=== PATIENT | male | born 1955 | race Caucasian/White ===

== ENCOUNTER 2021-03-30 09:52 | Emergency (ER) | payer OTHER, SELFPAY ==
--- NOTE | ~2021-03-30 | CT_ITS ---
EXAMINATION: CT PELVIS WITH CONTRAST CLINICAL INFORMATION: Rectal pain. Rule out perirectal abscess. COMPARISON: None TECHNIQUE: Helical scanning was performed with submillimeter collimation through the pelvis with the use of oral contrast and during bolus intravenous injection of 85 mL of Omnipaque 350 intravenous contrast. Sagittal and coronal multiplanar 2-D reconstructions were obtained. This CT examination was performed using dose optimization techniques as appropriate, variously including the following: *Automated exposure control *Adjustment of mA and/or kV according to patient size (this includes techniques or standardized protocols for targeted exams where dose is matched to indication/reason for exam; i.e. extremities or head) *Use of iterative reconstruction technique DLP: 348 mGy-cm FINDINGS: There is low-attenuation seen in the perineal region slightly to the right of midline and anterior to the lower rectum and anus suggestive of tiny perianal abscess or possibly a pilonidal cyst. This measures 0.5 x 1.5 x 1.8 cm in transverse AP and longitudinal dimension. There is a high density focus more superiorly that measures 4 mm. It is uncertain whether this represents oral contrast, postsurgical change or calcification axial image 49 series 2. The visualized small and large bowel is unremarkable. The appendix is unremarkable. There is evidence of atherosclerotic disease. The bladder is normal. The prostate gland is slightly enlarged measuring 4.5 x 5.5 cm in AP and transverse dimension. There is a right inguinal hernia containing fat. There is an umbilical hernia containing fat. There are no enlarged lymph nodes. There is no ascites. There is degenerative changes of the spine and bilateral hip joints. There are small nonspecific sclerotic densities in the bones, largest measuring 8 mm in the left acetabulum. CT/CT pelvis w con IMPRESSION: Probable small anterior perianal abscess or pilonidal cyst slightly to the right of midline.
[2021-03-30 09:55] VITALS: PULSE 63; RESP 18; TEMP 36.9; O2SAT 97; BMI 32.7
--- NOTE | 2021-03-30 11:12 | ED.GENADULT ---
HPI - General Adult General Chief complaint: General Medical Stated complaint: CYST Time Seen by Provider: 03/30/21 11:12 History of Present Illness HPI narrative: Patient complains of rectal pain for several days, as well as having some yellowish bloody discharge from the area, it is not blood in the stool it is not associated with stool, stool color is normal no nausea no vomiting no black or purple stool, no fever no chills Related Data Home Medications Medication Instructions Recorded Confirmed metoprolol tartrate 50 mg tablet 50 mg PO DAILY 04/03/21 04/03/21 rosuvastatin 40 mg tablet 40 mg PO DAILY 04/03/21 04/03/21 Previous Rx's Medication Instructions Recorded amoxicillin 875 mg-potassium 1 tab PO BID #20 tab 04/03/21 clavulanate 125 mg tablet doxycycline hyclate 100 mg capsule 100 mg PO BID 7 Days #14 cap 04/03/21 Allergies Allergy/AdvReac Type Severity Reaction Status Date / Time No Known Allergies Allergy Unverified 07/24/20 15:21 [No Known Allergies*] Review of Systems Review of Systems: Positive for rectal pain and some discharge Negative no fever no chills no dizziness no weakness no fainting no feeling faint no headache no neck pain no chest pain no abdominal pain no nausea or vomiting no diarrhea no urinary symptoms no skin rash no incontinence Yes all other systems are reviewed and are negative PMFSH Past Medical History Source: nursing notes reviewed Medical History High cholesterol HTN (hypertension) Surgical History History of fracture of left hip History of right knee surgery Family History Family History Mother Cancer of unknown origin Father Prostate cancer Brother Prostate cancer Social History Social History Alcohol intake: never Patient Tobacco Use Status: Never used Tobacco Physical Exam Vital Signs: Vital Signs: Last Vital Signs Temp 97.6 F 03/30/21 14:35 Pulse 63 03/30/21 09:55 Resp 18 03/30/21 09:55 BP 137/81 03/30/21 14:35 Pulse Ox 96 03/30/21 14:35 Body Mass Index 32.7 General appearance no acute distress, cooperative Pupils are anicteric, no pallor Mucous membranes are moist No respiratory distress Abdomen soft nontender Rectal exam there is an area of redness and induration on right lateral side of rectum, internal rectal exam did not reveal any area of fluctuance, but there was some pus see bloody discharge on the finger Extremities full range of motion x4 Neuro no focal deficit Course Course Course Narrative: Because of discharge from rectum and area of redness and induration I was concerned about perirectal abscess so got a scan CT scan showed a small perirectal abscess Discussed with Dr. Sauer surgeon who happened to be in the ER and he came over and saw the patient and said the abscess is actively draining that no emergent procedures required Patient will be on antibiotics and will follow this week with Dr. Sauer Medical Decision Making Lab Data Lab results reviewed: Yes I reviewed the patient's lab results. Result diagrams: 03/30/21 11:37 03/30/21 13:56 Labs: Lab Results 03/30/21 03/30/21 03/30/21 Range/Units 11:37 11:37 13:56 WBC 10.0 (4.8-10.8) X10*3/uL RBC 5.59 (4.60-5.80) X10*6/uL Hgb 16.7 (14.0-18.0) g/dl Hct 49.6 (42-52) % MCV 88.7 (80-98) fL MCH 29.9 (27.0-33.0) pg MCHC 33.7 (31.0-36.0) g/dl RDW 13.8 (11.0-16.0) % Plt Count 200 (160-400) X10*3/uL MPV 10.5 (9.4-12.4) fL Immature Gran % (Auto) 0.1 (0.0-0.4) % Neut % (Auto) 53.8 (45-73) % Lymph % (Auto) 33.3 (20-40) % [place] % (Auto) 10.2 (2-11) % Eos % (Auto) 2.1 (0-4) % Baso % (Auto) 0.5 (0-2) % Lymph # (Auto) 3.3 (1.2-4.9) X10*3/uL [place] # (Auto) 1.0 (0.1-1.2) X10*3/uL Eos # (Auto) 0.2 (0.0-0.4) X10*3/uL Baso # (Auto) 0.1 (0.0-0.2) X10*3/uL Abs Immat Gran (auto) 0.01 (0.00-0.03) X10*3/uL Absolute Neuts (auto) 5.4 (2.0-8.3) X10*3/uL Absolute Nucleated RBC 0.000 (0.0-0.012) X10*3/uL Nucleated RBC % (auto) 0.0 (0.0-0.2) /100WBC Sodium 141 (135-145) mmol/L Potassium 5.5 H 5.1 (3.3-5.1) mmol/L Chloride 108 (96-108) mmol/L Carbon Dioxide 24 (22-29) mmol/L Anion Gap 15 (12-20) BUN 12 (9-16) mg/dL Creatinine 0.97 (0.5-1.4) mg/dL Estim Creat Clear Calc 102.6 Estimated GFR > 60 Random Glucose 87 (60-115) mg/dL Calcium 9.0 (8.4-10.2) mg/dL Discharge Plan Discharge Clinical Impression: Abscess, perirectal Patient Disposition: Home, Self-Care Additional Instructions: CT scan showed a small perirectal abscess You were seen by surgical Dr. Sauer in the Emergency Room oblique of the abscess is draining and recommends do warm soaks at home He will follow in his office this week you will call the office to make an appointment Return to the ER any time for worse pain worse swelling fever any worse condition or any concerns I added the antibiotic doxycycline for broader coverage Probiotics available [id number] in the pharmacy help to prevent antibiotic associated diarrhea Prescriptions: No Action rosuvastatin 40 mg tablet 40 mg PO DAILY RF: 0 metoprolol tartrate 50 mg tablet 50 mg PO DAILY RF: 0 amoxicillin-pot clavulanate 875-125 mg tablet 1 tab PO BID Qty: 20 RF: 0 doxycycline hyclate 100 mg capsule 100 mg PO BID 7 Days Qty: 14 RF: 0 Referrals: Douglas Sauer MD [Physician] - 2 days (Follow-up for yanira rectal abscess) Interventions: ED Discharge Assessment Last Done: 03/30/21 16:21 Discharge Date/Time: 03/30/21 16:22
[2021-03-30 11:42] LABS: MANUAL DIFF FLAG NO
[2021-03-30 11:46] LABS: Basophils Absolute Auto 0.1 X10*3/uL (0.0-0.2); Basophils Percent Auto 0.5 % (0-2); Eosinophils Absolute Auto 0.2 X10*3/uL (0.0-0.4); Eosinophils Percent Auto 2.1 % (0-4); Hematocrit 49.6 % (42-52); Hemoglobin 16.7 g/dl (14.0-18.0); Imm Gran Abs Auto 0.01 X10*3/uL (0.00-0.03); Imm Gran Pct Auto 0.1 % (0.0-0.4); Lymphocytes Absolute Auto 3.3 X10*3/uL (1.2-4.9); Lymphocytes Percent Auto 33.3 % (20-40); Mean Corpuscular HGB Conc 33.7 g/dl (31.0-36.0); Mean Corpuscular Hemoglobin 29.9 pg (27.0-33.0); Mean Corpuscular Volume 88.7 fL (80-98); Mean Platelet Volume 10.5 fL (9.4-12.4); Monocytes Percent Auto 10.2 % (2-11); Neutrophils Absolute Auto 5.4 X10*3/uL (2.0-8.3); Neutrophils Percent Auto 53.8 % (45-73); Platelet Count 200 X10*3/uL (160-400); Red Blood Count 5.59 X10*6/uL (4.60-5.80); Red Cell Distribution Width 13.8 % (11.0-16.0)
[2021-03-30 13:04] LABS: Anion Gap 15 (12-20); Blood Urea Nitrogen 12 mg/dL (9-16); Carbon Dioxide 24 mmol/L (22-29); Chloride 108 mmol/L (96-108); Creatinine Clr Calc Pharmacy 102.6; Estimated Glomerular Filt Rate > 60; Glucose Random 87 mg/dL (60-115); Potassium 5.5 mmol/L (3.3-5.1); Sodium 141 mmol/L (135-145)
[2021-03-30] MEDS: iohexoL 350 MG/ML 100 ML INFUS..BTL IV (13:54)
[2021-03-30 14:28] LABS: Potassium 5.1 mmol/L (3.3-5.1)
[2021-03-30 14:35] VITALS: BP 137/81; TEMP 36.4; O2SAT 96
== END 2021-03-30 16:22 | disposition home or self-care (01) ==
PROVIDERS: Physician Assistant Medical; Emergency Provider Emergency Medicine; PCP Internal Medicine
DX: K61.1 Rectal abscess (principal); I10 Essential (primary) hypertension; E78.5 Hyperlipidemia, unspecified; Z79.02 Long term (current) use of antithrombotics/antiplatelets; Z79.899 Other long term (current) drug therapy
CPT/HCPCS: 36415; 72193; 80048; 84132; 85025; 99284; Q9967

== ENCOUNTER → 2021-04-03 08:36 | Outpatient (BNVA) | payer OTHER, SELFPAY | PROVIDERS: PCP Internal Medicine; Referring Provider Internal Medicine; Visit Provider Surgery ==

== ENCOUNTER → 2021-04-16 08:39 | Outpatient (BNVA) | payer OTHER, SELFPAY | PROVIDERS: PCP Physician Assistant Medical; Visit Provider Surgery ==

== ENCOUNTER 2022-01-10 20:26 | Emergency (ER) | payer OTHER, SELFPAY ==
--- NOTE | ~2022-01-10 | CT_ITS ---
EXAMINATION: CT ANGIOGRAM NECK AND HEAD CLINICAL INFORMATION: Vertical double vision COMPARISON: Noncontrast head CT from earlier today TECHNIQUE: Initial noncontrast head CT was performed. Test bolus sequences followed by intravenous administration 65 mL of Omnipaque 350. Helical imaging was performed in the axial plane from the thoracic inlet to the skull vertex. Delayed postcontrast imaging of the head was also performed. The data was processed at the cardiovascular radiologic technologist's workstation for generation of MIP sequences. Angled MIPs and volume rendered reformatted images were also generated at an offline 3D workstation. Stenoses are assessed in accordance with NASCET criteria unless otherwise indicated. DOSE LOWERING TECHNIQUES: This CT examination was performed using dose optimization techniques as appropriate, variously including the following: - Automated exposure control - Adjustment of mA and/or kV according to patient size (this includes techniques or standardized protocols for targeted exams were dose is matched to indication/reason for exam; i.e. 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 No significant stenosis at the branch origins off the aortic arch. The right vertebral artery arises off the common carotid artery. Both vertebral arteries are widely patent throughout their extracranial cervical course. There is calcification at the left common carotid artery bifurcation which appears to result in less than 50% luminal narrowing. Minimal calcification is present at the right common carotid artery bifurcation and proximal internal carotid artery. Otherwise normal appearance of the common and internal carotid arteries bilaterally. Brain CTA: Normal appearance of the intradural vertebral arteries. Normal appearance of the basilar and superior cerebellar arteries. Normally opacified posterior cerebral arteries bilaterally. Normal appearance of the intradural internal carotid arteries without focal stenosis. Normal appearance of the anterior cerebral and middle cerebral arteries without focal occlusion or stenosis. Normal anterior communicating artery. Normal arborization of the middle cerebral arteries. CT Head: No intracranial mass, hemorrhage, extra-axial collection, or midline shift. The zepeda-white matter differentiation is preserved. No pathologic intra-axial enhancement or regional oligemia. No hydrocephalus. Partially opacified bilateral maxillary sinuses. Mastoid air cells are well aerated. CT Neck: The thyroid gland and remaining cervical soft tissues are normal in appearance. There is facet arthropathy throughout the cervical spine as well as multilevel disc space narrowing and endplate osteophyte formation. Upper Chest: No abnormalities in the visualized lung apices or upper mediastinum. CT/CT angio head neck IMPRESSION: 1. No large vessel occlusion or significant stenosis in the intracranial circulation. 2. Calcification at the left common carotid artery bifurcation, with less than 50% luminal narrowing.
--- NOTE | ~2022-01-10 | CT_ITS ---
EXAMINATION: CT HEAD WITHOUT CONTRAST CLINICAL INFORMATION: Intermittent double vision throughout the day COMPARISON: None TECHNIQUE: Contiguous axial imaging was performed from the skull base to vertex without intravenous administration of contrast. This CT examination was performed using dose optimization techniques as appropriate, variously including the following: *Automated exposure control *Adjustment of mA and/or kV according to patient size (this includes techniques or standardized protocols for targeted exams where dose is matched to indication/reason for exam; i.e. extremities or head) *Use of iterative reconstruction technique DLP: 2436 mGy-cm FINDINGS: There is no evidence of acute intracranial hemorrhage or territorial infarction. No abnormal mass effect or midline shift is seen. Mahmood to white matter differentiation is well preserved. No extra-axial fluid collections are identified. The ventricles are normal in size. There is no abnormal attenuation within the brain parenchyma. The osseous structures and soft tissues are normal. Partially opacified bilateral maxillary sinuses. The mastoid air cells are well-aerated. CT/CT head/brain wo con IMPRESSION: No acute intracranial pathology.
[2022-01-10 20:30] VITALS: BP 154/87; PULSE 63; RESP 18; TEMP 36.5; O2SAT 94; BMI 35.2
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
[2022-01-11 00:40] VITALS: BP 127/81; PULSE 52; RESP 16; TEMP 36.7; O2SAT 95
[2022-01-11 00:59] LABS: Basophils Percent Auto 0.5 % (0-2); Eosinophils Absolute Auto 0.2 X10*3/uL (0.0-0.4); Eosinophils Percent Auto 2.4 % (0-4); Hematocrit 49.5 % (42.0-52.0); Hemoglobin 16.9 g/dl (14.0-18.0); Imm Gran Abs Auto 0.01 X10*3/uL (0.00-0.03); Imm Gran Pct Auto 0.1 % (0.0-0.4); Lymphocytes Absolute Auto 4.3 X10*3/uL (1.2-4.9); Lymphocytes Percent Auto 54.8 % (20-40); MANUAL DIFF FLAG NO; Mean Corpuscular HGB Conc 34.1 g/dl (31.0-36.0); Mean Corpuscular Hemoglobin 30.1 pg (27.0-33.0); Mean Corpuscular Volume 88.1 fL (80.0-98.0); Mean Platelet Volume 10.3 fL (9.4-12.4); Monocytes Absolute Auto 0.8 X10*3/uL (0.1-1.2); Monocytes Percent Auto 10.4 % (2-11); Neutrophils Absolute Auto 2.5 x10*3/uL (2.0-8.3); Neutrophils Percent Auto 31.8 % (45-73); Platelet Count 171 X10*3/uL (160-400); Red Blood Count 5.62 X10*6/uL (4.60-5.80); Red Cell Distribution Width 13.7 % (11.0-16.0); White Blood Count 7.9 X10*3/uL (4.8-10.8)
[2022-01-11 01:05] LABS: INTERNATIONAL NORM RATIO 1.1 (0.9-1.1); Prothrombin Time 12.3 SEC (9.9-13.0)
[2022-01-11 01:17] LABS: Alanine Aminotransferase 32 U/L (0-40); Albumin Level 4.1 g/dL (3.5-5.0); Alkaline Phosphatase 55 U/L (39-117); Anion Gap 11 (12-20); Aspartate Amino Transferase 26 U/L (5-37); Bilirubin Total 0.6 mg/dL (0.0-1.0); Blood Urea Nitrogen 21 mg/dL (9-16); Calcium 9.5 mg/dL (8.4-10.2); Carbon Dioxide 28 mmol/L (22-29); Chloride 106 mmol/L (96-108); Creatinine Clr Calc Pharmacy 94.2; Estimated Glomerular Filt Rate > 60; Glucose Random 97 mg/dL (60-115); Potassium 4.6 mmol/L (3.3-5.1); Sodium 140 mmol/L (135-145); Total Protein 6.7 g/dL (6.5-8.0)
[2022-01-11 01:37] LABS: Thyroid Stimulating Hormone 3.93 uIU/mL (0.32-4.0)
[2022-01-11] MEDS: iohexoL 350 MG/ML 100 ML INFUS..BTL 65 ML IV (02:17)
[2022-01-11 04:00] VITALS: BP 158/81; PULSE 52; RESP 16; TEMP 36.5; O2SAT 95
== END 2022-01-11 04:27 | disposition home or self-care (01) ==
PROVIDERS: Emergency Provider Student in an Organized Health Care Education/Training Program; PCP Physician Assistant Medical
DX: H53.2 Diplopia (principal); I10 Essential (primary) hypertension; E78.5 Hyperlipidemia, unspecified; Z79.02 Long term (current) use of antithrombotics/antiplatelets
CPT/HCPCS: 70450; 70496; 70498; 80053; 84443; 85025; 85610; 99284; Q9967

== ENCOUNTER 2022-01-21 05:07 | Emergency (ER) | payer OTHER, SELFPAY ==
--- NOTE | ~2022-01-21 | CT_ITS ---
EXAMINATION: CT HEAD WITHOUT CONTRAST CLINICAL INFORMATION: Bilateral upper extremity weakness COMPARISON: Portions of a previous head CT 01/11/22 TECHNIQUE: Multidetector CT examination of the head is performed without contrast. This CT examination was performed using dose optimization techniques as appropriate, variously including the following: *Automated exposure control *Adjustment of mA and/or kV according to patient size (this includes techniques or standardized protocols for targeted exams where dose is matched to indication/reason for exam; i.e. extremities or head) *Use of iterative reconstruction technique DLP: 680 mGy-cm FINDINGS: There is no evidence of a recent intracranial hemorrhage or extra-axial collection. The midline structures are nondisplaced. The ventricles, cisterns, and sulci are within normal limits. There is no evidence of an intra-axial mass. There are no suspicious focal areas of abnormal brain attenuation. The zepeda-white interface is within normal limits. There is no evidence of acute territorial infarct. Suspect a partially included retention cyst or polyp in the left maxillary sinus unchanged. CT/CT head/brain wo con IMPRESSION: 1. There is no evidence of a recent intracranial hemorrhage. 2. No acute infarct. 3. No significant interval change
[2022-01-21 05:12] VITALS: BP 182/97; PULSE 64; RESP 16; TEMP 35.8; O2SAT 95; BMI 34.7
--- NOTE | 2022-01-21 06:02 | PC.NURSE ---
Assumed care of pt Per pt, every time he bends over and puts his arms behind his back he looses control of the arm. Per pt, arm just hangs down. Pt denies any pain. Pt went to urgent care and was given muscle relaxants. Per pt, made him feel loopy and does not want to take it again. 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
[2022-01-21 07:05] VITALS: BP 147/80; PULSE 53; RESP 16; O2SAT 95
--- NOTE | 2022-01-21 07:09 | ED_ITS ---
HPI - General Adult General Chief complaint: General Medical Stated complaint: losing control of motor skills (1x week) Time Seen by Provider: 01/21/22 07:09 Source: patient Mode of arrival: ambulatory Limitations: no limitations History of Present Illness HPI narrative: 66-year-old male came in for evaluation of bilateral upper extremities weakness for the past week. Started with pain in the back of both arms, now the pain is going away, patient notice if bent over and try to hold his both arms behind his back has no strength to keep them up and arms drop down, patient also been having trouble wiping after bowel movements, otherwise patient has no weakness and able to move both upper extremities, no lower extremities strength problem. no loss of sensation, patient otherwise declined any trauma to both arms or neck, no fever or chills, no other neurological symptoms, no headache, no double vision, patient was seen 10 days ago for diplopia with a negative workup in the emergency department. Past medical history with no significant neurological issue. Related Data Home Medications Medication Instructions Recorded Confirmed metoprolol tartrate 50 mg tablet 50 mg PO DAILY 04/03/21 04/16/21 rosuvastatin 40 mg tablet 40 mg PO DAILY 04/03/21 04/16/21 Previous Rx's Medication Instructions Recorded amoxicillin 875 mg-potassium 1 tab PO BID #20 tab 04/03/21 clavulanate 125 mg tablet doxycycline hyclate 100 mg capsule 100 mg PO BID 7 Days #14 cap 04/03/21 Allergies Allergy/AdvReac Type Severity Reaction Status Date / Time No Known Allergies Allergy Verified 01/10/22 20:30 [No Known Allergies*] Review of Systems Review of Systems: All other systems are reviewed and are negative Constitutional: Reports as per HPI and Reports no additional constitutional complaints Eyes: Reports as per HPI and Reports no additional eye complaints Reports system reviewed and no additional complaints, except as documented Cardiovascular: Reports as per HPI and Reports no additional cardiovascular complaints Respiratory: Reports as per HPI and Reports no additional respiratory complaints Gastrointestinal: Reports as per HPI and Reports no additional gastrointestinal complaints Genitourinary: Reports no additional female genitourinary complaints Musculoskeletal: Reports no additional musculoskeletal complaints Skin/Breast: Reports system reviewed and no additional complaints, except as docu Psychiatric: Reports no additional psychiatric complaints Endocrine: Reports no additional endocrine complaints Hematologic/Lymphatic: Reports no additional hematologic/lymphatic complaints Allergic/Immunologic: Reports no additional allergic/immunologic complaints Reports system reviewed and no additional complaints, except as documented and Reports Abnormal speech present [facility] Past Medical History Medical History High cholesterol HTN (hypertension) Surgical History History of fracture of left hip History of right knee surgery Family History Family History Mother Cancer of unknown origin Father Prostate cancer Brother Prostate cancer Social History Social History Alcohol intake: never Patient Tobacco Use Status: Never used Tobacco Advance Directives: No Advance Directives Information Provided: Yes Physical Exam ED Vital Signs: Vital Signs - 24 hr 01/21/22 05:12 01/21/22 07:05 01/21/22 08:00 Temperature 96.5 F L Pulse Rate 64 53 58 Respiratory Rate 16 16 20 Blood Pressure 182/97 H 147/80 H 161/81 H Pulse Oximetry 95 95 95 BMI result Body Mass Index 34.7 vital signs have been reviewed as appeared to be correct. Blood pressure Elevated. Heart rate normal. Respiration rate normal. Temperature normal. Oxygen saturation normal. Appearance: Alert. Oriented X3. No acute distress. Head: Normal external exam. Normocephalic. Atraumatic. No Dominguez signs noted. No raccoon eyes noted Eyes: PERRLA. EOMI. Conjunctiva and sclera normal. Eyelids normal. ENT: TM's Normal. Pharynx normal. Uvula midline. Moist mucous membranes. No trismus noted. No drooling noted. No muffled voice noted. Neck: Normal inspection. Neck supple. FROM. No adenopathy. Thyroid Normal. No meningeal signs. No neck mass noted. CVS: Normal heart rate and rhythm. Heart sound normal. No murmurs noted. Pulses normal throughout. Respiratory: No respiratory distress. Painless inspiration. Breath sounds normal. No wheezes/rales/rhonchi noted. Chest nontender. No accessory muscle usage noted or decreased air movement noted. Abdomen: Soft and nontender. Bowel sounds normal in all 4 quadrants. No distention noted. No organomegaly noted. No visible injury noted. Back: No CVA tenderness. Full range of motion noted. Skin: Skin warm and dry. Normal skin color. Normal skin turgor. No rashes/lesions/lacerations noted. Extremities: No lower extremity edema. Extremities exhibit normal range of motion. Extremities nontender. Neuro: Oriented X 3. Cranial nerve exam: II-XII are grossly intact No motor deficit. No sensory deficit. Reflexes normal. Course Course Course Narrative: 66 years old male came in for bilat upper extremities weakness only when he bent over he cannot hold his both arms, otherwise rest of neuro exam is unremarkable, patient had unremarkable labs including CPK, head CT is unremarkable. Patient will need to follow up with Neurology as an outpatient. Medical Decision Making Lab Data Lab results reviewed: Yes I reviewed the patient's lab results. Result diagrams: 01/21/22 08:02 01/21/22 08:01 Labs: Lab Results 01/21/22 01/21/22 01/21/22 Range/Units 08:01 08:01 08:02 WBC 10.9 H (4.8-10.8) X10*3/uL RBC 6.04 H (4.60-5.80) X10*6/uL Hgb 17.8 (14.0-18.0) g/dl Hct 53.4 H (42.0-52.0) % MCV 88.4 (80.0-98.0) fL MCH 29.5 (27.0-33.0) pg MCHC 33.3 (31.0-36.0) g/dl RDW 13.7 (11.0-16.0) % Plt Count 184 (160-400) X10*3/uL MPV 10.9 (9.4-12.4) fL Immature Gran % (Auto) 0.4 (0.0-0.4) % Neut % (Auto) 67.8 (45-73) % Lymph % (Auto) 26.3 (20-40) % [place] % (Auto) 5.3 (2-11) % Eos % (Auto) 0.0 (0-4) % Baso % (Auto) 0.2 (0-2) % Lymph # (Auto) 2.9 (1.2-4.9) X10*3/uL [place] # (Auto) 0.6 (0.1-1.2) X10*3/uL Eos # (Auto) 0.0 (0.0-0.4) X10*3/uL Baso # (Auto) 0.0 (0.0-0.2) X10*3/uL Abs Immat Gran (auto) 0.04 H (0.00-0.03) X10*3/uL Absolute Neuts (auto) 7.4 (2.0-8.3) x10*3/uL Absolute Nucleated RBC 0.000 (0.0-0.012) X10*3/uL Nucleated RBC % (auto) 0.0 (0.0-0.2) /100WBC ESR 1 (0-15) MM/HR Sodium 142 (135-145) mmol/L Potassium 4.7 (3.3-5.1) mmol/L Chloride 108 (96-108) mmol/L Carbon Dioxide 26 (22-29) mmol/L Anion Gap 13 (12-20) BUN 14 (9-16) mg/dL Creatinine 0.96 (0.5-1.4) mg/dL Estim Creat Clear Calc 105.2 Estimated GFR > 60 Random Glucose 124 H (60-115) mg/dL Calcium 10.0 (8.4-10.2) mg/dL Total Bilirubin 0.6 (0.0-1.0) mg/dL Direct Bilirubin 0.3 (0.0-0.5) mg/dL AST 21 (5-37) U/L ALT 37 (0-40) U/L Alkaline Phosphatase 59 (39-117) U/L Total Creatine Kinase 105 (38-174) U/L Troponin I High Sens (<3.5-35.0) ng/L C-Reactive Protein 0.05 (< or = 0.50) mg/dL B-Natriuretic Peptide (<100) pg/mL Total Protein 7.5 (6.5-8.0) g/dL Albumin 4.6 (3.5-5.0) g/dL Lipase 50 (8-78) U/L Urine Color Urine Appearance Urine pH (5.0-8.0) Ur Specific [place] (1.005-1.025) Urine Protein (NEG-TRACE) MG/DL Urine Glucose (UA) (NEG) MG/DL Urine Ketones (NEG) MG/DL Urine Blood (NEG) Urine Nitrite (NEG) Ur Leukocyte Esterase (NEG) 01/21/22 01/21/22 Range/Units 08:02 08:11 WBC (4.8-10.8) X10*3/uL RBC (4.60-5.80) X10*6/uL Hgb (14.0-18.0) g/dl Hct (42.0-52.0) % MCV (80.0-98.0) fL MCH (27.0-33.0) pg MCHC (31.0-36.0) g/dl RDW (11.0-16.0) % Plt Count (160-400) X10*3/uL MPV (9.4-12.4) fL Immature Gran % (Auto) (0.0-0.4) % Neut % (Auto) (45-73) % Lymph % (Auto) (20-40) % [place] % (Auto) (2-11) % Eos % (Auto) (0-4) % Baso % (Auto) (0-2) % Lymph # (Auto) (1.2-4.9) X10*3/uL [place] # (Auto) (0.1-1.2) X10*3/uL Eos # (Auto) (0.0-0.4) X10*3/uL Baso # (Auto) (0.0-0.2) X10*3/uL Abs Immat Gran (auto) (0.00-0.03) X10*3/uL Absolute Neuts (auto) (2.0-8.3) x10*3/uL Absolute Nucleated RBC (0.0-0.012) X10*3/uL Nucleated RBC % (auto) (0.0-0.2) /100WBC ESR (0-15) MM/HR Sodium (135-145) mmol/L Potassium (3.3-5.1) mmol/L Chloride (96-108) mmol/L Carbon Dioxide (22-29) mmol/L Anion Gap (12-20) BUN (9-16) mg/dL Creatinine (0.5-1.4) mg/dL Estim Creat Clear Calc Estimated GFR Random Glucose (60-115) mg/dL Calcium (8.4-10.2) mg/dL Total Bilirubin (0.0-1.0) mg/dL Direct Bilirubin (0.0-0.5) mg/dL AST (5-37) U/L ALT (0-40) U/L Alkaline Phosphatase (39-117) U/L Total Creatine Kinase (38-174) U/L Troponin I High Sens < 3.5 (<3.5-35.0) ng/L C-Reactive Protein (< or = 0.50) mg/dL B-Natriuretic Peptide 15 (<100) pg/mL Total Protein (6.5-8.0) g/dL Albumin (3.5-5.0) g/dL Lipase (8-78) U/L Urine Color YELLOW Urine Appearance CLEAR Urine pH 5.5 (5.0-8.0) Ur Specific [place] <= 1.005 (1.005-1.025) Urine Protein NEG (NEG-TRACE) MG/DL Urine Glucose (UA) NEG (NEG) MG/DL Urine Ketones NEG (NEG) MG/DL Urine Blood NEG (NEG) Urine Nitrite NEG (NEG) Ur Leukocyte Esterase NEG (NEG) Imaging Data CT scan - head: Attestation: I personally reviewed and interpreted this imaging study as follows: Radiologist's impression: No acute pathology. ECG Data Attestation: I personally reviewed and interpreted this ECG as follows: Interpretation: Sinus bradycardia at 56 beats per minute, left axis deviation, normal intervals, no ST-teaching GIST. Discharge Plan Discharge Clinical Impression: Muscle weakness of left upper extremity Patient Disposition: Home, Self-Care Instructions: Weakness (ED) Prescriptions: No Action rosuvastatin 40 mg tablet 40 mg PO DAILY 0RF metoprolol tartrate 50 mg tablet 50 mg PO DAILY 0RF amoxicillin-pot clavulanate 875-125 mg tablet 1 tab PO BID Qty: 20 0RF doxycycline hyclate 100 mg capsule 100 mg PO BID 7 Days Qty: 14 0RF Referrals: Dandre Green PA [Primary Care Provider] - 2 days Drew Lott MD [Physician] - 2 days
--- NOTE | 2022-01-21 07:20 | ECG_ITS ---
Test Reason : WEAKNESS Blood Pressure : / mmHG Vent. Rate : 056 BPM Atrial Rate : 056 BPM P-R Int : 198 ms QRS Dur : 082 ms QT Int : 430 ms P-R-T Axes : 000 209 147 degrees QTc Int : 414 ms Sinus bradycardia Right superior axis deviation T inversion lateral leads, consider ischemia Abnormal ECG When compared with ECG of 22-OCT-2013 22:26, Questionable change in QRS axis T inversion now seen Referred By: Navjot Bain Electronically Signed By:CISCO LORA
[2022-01-21 08:00] VITALS: BP 161/81; PULSE 58; RESP 20; O2SAT 95
[2022-01-21 08:06] LABS: MANUAL DIFF FLAG NO
[2022-01-21 08:08] LABS: Basophils Percent Auto 0.2 % (0-2); Hematocrit 53.4 % (42.0-52.0); Hemoglobin 17.8 g/dl (14.0-18.0); Imm Gran Abs Auto 0.04 X10*3/uL (0.00-0.03); Imm Gran Pct Auto 0.4 % (0.0-0.4); Lymphocytes Absolute Auto 2.9 X10*3/uL (1.2-4.9); Lymphocytes Percent Auto 26.3 % (20-40); Mean Corpuscular HGB Conc 33.3 g/dl (31.0-36.0); Mean Corpuscular Hemoglobin 29.5 pg (27.0-33.0); Mean Corpuscular Volume 88.4 fL (80.0-98.0); Mean Platelet Volume 10.9 fL (9.4-12.4); Monocytes Absolute Auto 0.6 X10*3/uL (0.1-1.2); Monocytes Percent Auto 5.3 % (2-11); Neutrophils Absolute Auto 7.4 x10*3/uL (2.0-8.3); Neutrophils Percent Auto 67.8 % (45-73); Platelet Count 184 X10*3/uL (160-400); Red Blood Count 6.04 X10*6/uL (4.60-5.80); Red Cell Distribution Width 13.7 % (11.0-16.0); White Blood Count 10.9 X10*3/uL (4.8-10.8)
[2022-01-21 08:24] LABS: Appearance Urine CLEAR; Color Urine YELLOW; Glucose Urine UA NEG (NEG); Leukocyte Esterase Urine NEG (NEG); Nitrite Urine NEG (NEG); PH 5.5 (5.0-8.0); Specific Gravity - Urine <= 1.005 (1.005-1.025); Urine Blood NEG (NEG); Urine Ketones NEG (NEG); Urine Protein NEG (NEG-TRACE)
[2022-01-21 08:26] LABS: Alanine Aminotransferase 37 U/L (0-40); Albumin Level 4.6 g/dL (3.5-5.0); Alkaline Phosphatase 59 U/L (39-117); Anion Gap 13 (12-20); Aspartate Amino Transferase 21 U/L (5-37); Bilirubin Direct 0.3 mg/dL (0.0-0.5); Bilirubin Total 0.6 mg/dL (0.0-1.0); Blood Urea Nitrogen 14 mg/dL (9-16); C Reactive Protein 0.05 mg/dL (< or = 0.50); Carbon Dioxide 26 mmol/L (22-29); Chloride 108 mmol/L (96-108); Creatinine Clr Calc Pharmacy 105.2; Estimated Glomerular Filt Rate > 60; Glucose Random 124 mg/dL (60-115); Lipase 50 U/L (8-78); Potassium 4.7 mmol/L (3.3-5.1); Sodium 142 mmol/L (135-145); Total Protein 7.5 g/dL (6.5-8.0)
[2022-01-21 08:29] LABS: B Type Natriuretic Peptide 15 pg/mL (<100); Troponin-I High Sensitivity < 3.5 ng/L (<3.5-35.0)
--- NOTE | 2022-01-21 08:30 | PC.NURSE ---
pt reports that about a week ago he began having difficulty holding his left hand up. he states that he noticed it when he attempted to wipe after using the restroom and since has gotten increasingly worst. he went to urgent care and they gave him muscle relaxes but they didn't help. he contacted his pcp and they told him to come to ed for further eval. he denies pain. no neuro deficits noted.
[2022-01-21] MEDS: 0.9 % Sodium Chloride 1,000 ML 999 ML IV ×2 (08:42→08:43)
[2022-01-21 08:52] LABS: Erythrocyte Sedimentation Rate 1 MM/HR (0-15)
--- NOTE | 2022-01-21 10:16 | PC.NURSE ---
Pt medically cleared for discharge. Discharge instructions reviewed with patient.
== END 2022-01-21 10:15 | disposition home or self-care (01) ==
PROVIDERS: Emergency Provider Emergency Medicine; PCP Physician Assistant Medical
DX: R53.1 Weakness (principal); R00.1 Bradycardia, unspecified; I10 Essential (primary) hypertension; E78.5 Hyperlipidemia, unspecified; Z79.02 Long term (current) use of antithrombotics/antiplatelets
CPT/HCPCS: 36415; 70450; 80048; 80076; 81003; 82550; 83690; 83880; 84484; 85025; 85652; 86140; 93005; 96360; 99284

== ENCOUNTER 2022-01-25 13:58 | Outpatient (REF) | payer OTHER, SELFPAY ==
[2022-01-27 05:06] LABS: Lyme Abs Screen <0.90 index
[2022-01-29 07:16] LABS: Aldolase 6.9 U/L (<=8.1)
[2022-01-30 00:32] LABS: Acetylcholine Recept. Blocking <15 (<15)
[2022-01-30 05:06] LABS: Acetylcholine Receptor Binding <0.30 nmol/L
[2022-02-09 19:27] LABS: Acetylcholine Recep Modulating 26
== END 2022-01-25 13:59 | disposition home or self-care (01) ==
LOC: HO.LAB 13:58
PROVIDERS: Visit Provider Psychiatry & Neurology Neurology
DX: H53.2 Diplopia (principal); M62.81 Muscle weakness (generalized)
CPT/HCPCS: 36415; 82085; 82550; 83519; 86617; 86618

== ENCOUNTER 2022-02-11 11:28 | Outpatient (REF) | payer OTHER, SELFPAY | END 2022-02-11 11:29 | disposition home or self-care (01) | LOC: HO.LAB 11:28 | PROVIDERS: PCP Physician Assistant Medical; Visit Provider Psychiatry & Neurology Neurology | DX: Z13.89 Encounter for screening for other disorder (principal) ==

== ENCOUNTER 2022-02-19 10:24 | Outpatient (REF) | payer OTHER, SELFPAY | END 2022-02-19 10:25 | disposition home or self-care (01) | LOC: HO.LAB 10:24 | PROVIDERS: PCP Physician Assistant Medical; Visit Provider Psychiatry & Neurology Neurology | DX: Z01.84 Encounter for antibody response examination (principal) | CPT/HCPCS: 36415; 86596 ==

== ENCOUNTER 2022-03-02 12:52 | Outpatient (REF) | payer OTHER, SELFPAY ==
[2022-03-02 14:09] LABS: Blood Urea Nitrogen 22 mg/dL (9-16); Estimated Glomerular Filt Rate > 60
== END 2022-03-02 12:53 | disposition home or self-care (01) ==
LOC: HO.LAB 12:52
PROVIDERS: PCP Physician Assistant Medical; Visit Provider Psychiatry & Neurology Neurology
DX: G70.00 Myasthenia gravis without (acute) exacerbation (principal)
CPT/HCPCS: 36415; 82565; 84520

== ENCOUNTER 2022-03-03 15:27 | Outpatient (REF) | payer OTHER, SELFPAY ==
--- NOTE | ~2022-03-03 | CT_ITS ---
EXAMINATION: CT CHEST WITH CONTRAST CLINICAL INFORMATION: Diplopia, myasthenia gravis. COMPARISON: Chest x-ray 10/22/2013. TECHNIQUE: Multidetector volumetric CT imaging of the chest was obtained after the administration of 50 mL of Omnipaque 350 intravenous contrast without immediate adverse reactions. Axial MIP volume rendering provided. Sagittal and coronal reformatted images were obtained. This CT examination was performed using dose optimization techniques as appropriate, variously including the following: *Automated exposure control *Adjustment of mA and/or kV according to patient size (this includes techniques or standardized protocols for targeted exams where dose is matched to indication/reason for exam; i.e. extremities or head) *Use of iterative reconstruction technique DLP: 229 mGy-cm. 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 LUNGS: The lungs are well expanded with bibasilar atelectasis, slightly greater on the left. There are no pulmonary nodules, mass or acute consolidation. MEDIASTINUM: The thyroid lobes are symmetric and normal. The central trachea and the bronchi are widely patent. There is no anterior mediastinal mass or abnormal lymphadenopathy. There is no pericardial effusion. There are coronary artery calcifications present. PLEURA: There is no pleural effusion. No pleural mass or thickening. AXILLA: No lymphadenopathy. UPPER ABDOMEN: Visualized liver, spleen, pancreas and bilateral adrenal glands are unremarkable. There is a small upper pole left renal cysts. No radiopaque gallstones seen. OSSEOUS STRUCTURES: There is no lytic or sclerotic process. There is moderate ventral spondylosis. CT/CT chest w con IMPRESSION: No mediastinal mass or thymic tissue visualized. Bibasilar atelectasis. Moderate ventral spondylosis dorsal spine. Fleischner guidelines were followed.
[2022-03-03] MEDS: iohexoL 350 MG/ML 100 ML INFUS..BTL IV (16:14)
== END 2022-03-03 15:28 | disposition home or self-care (01) ==
LOC: HO.CT 15:27
PROVIDERS: PCP Physician Assistant Medical; Visit Provider Psychiatry & Neurology Neurology
DX: H53.2 Diplopia (principal); G70.00 Myasthenia gravis without (acute) exacerbation
CPT/HCPCS: 71260; Q9967

== ENCOUNTER 2025-09-03 14:27 | Outpatient (AMB) | payer MEDICARE, SELFPAY ==
--- NOTE | 2025-09-03 14:35 | MHC.OFFVIS ---
Intake Visit Reasons: 6 months Allergies No Known Allergies (No Known Allergies*) Allergy (Verified 01/10/22 20:30) HPI Comments Details: 70 yo man with probably antibody negative myasthenia gravis, He prsented with double vision and bilateral arm, hand and neck weakness likely from a neuromuscular disorder. Acetylcholine receptor antibody titers were negative. Anti Musk was negative. HE was started on Prednisone 40mg bid on February 11, 2022. Prednisone dose was dropped to 2.5mg a day when he started having symptoms again. He was stable at 3mg daily. He was doing all right with no double vision, swallowing difficulty, breathing difficulty, or any sign of weakness. [facility], [facility] Medical History (Updated 09/03/25 @ 14:37 by Drew Lott MD) Hyperlipemia Myasthenia gravis High cholesterol HTN (hypertension) Surgical History History of fracture of left hip History of right knee surgery Family History Mother Cancer of unknown origin Father Prostate cancer Brother Prostate cancer Social History Alcohol intake: never Patient Tobacco Use Status: Never used Tobacco Review of Systems Narrative As per [facility] Const Reports as per [facility] Physical Exam Neuro Other: Mental Status: Alert and oriented to person, place, and time. Normal attention. Normal spontaneous speech, fluency, and comprehension. No obvious issues with mood and memory. Affect is appropriate. Cranial Nerves: CN II: Visual boyle full to confrontation, visual acuity intact. CN III, IV, : Pupils equal, round, reactive to light and accommodation. Extraocular movements are normal. CN V: Facial sensation is normal. CN VII: Facial movements symmetrical. CN VIII: Hearing intact to bedside conversation is normal. CN IX, X: Palate elevates symmetrically. CN XI: Shoulder shrug and head turn symmetrical. CN XII: Tongue midline without atrophy or fasciculations. Extrapyramidal: Full facial expressions and blinking. No rigidity. Movements are appropriate with no tremor or abnormality. Speech: Normal; no dysarthria or tremor. Assessment & Plan Assessment & Plan (1) Myasthenia gravis: Comment: CT chest at [facility] in 2021: [place] [facility] [place] AChR Abs neg, VGC P/Q neg, aldolase/CPK ok, Lyme neg. Code(s): G70.00 - Myasthenia gravis without (acute) exacerbation Category: Medical Plan Impression recommendations: 70 years old man with generalized myasthenia gravis, antibody negative, well responsive to prednisone and now taking 3 mg of prednisone a day. This dose was continued. He was reassured and educated. Follow would be in 6 months. Medications: New prednisone 3 mg (3 x 1 mg) PO DAILY 270 tabs 1RF Coding Level of Care Code Est Pt Level 4 (12797) Diagnoses Myasthenia gravis G70.00
--- OUTSIDE RECORDS SUMMARY | 2025-09-03 18:48 | XMS_ITS | Encounter Summary ---
Author Organization [facility] Address [address] [place] [id number] Phone Care Team Providers Care Concrete Floor Installer Name Role Phone Dandre Green Primary Care Provid er Encounter Details Date Type Department Care Team (Late st Contact Info) Description 01/14/2023 Procedure Pass OR Admitting Dept - Virtual Department [address] [place] [id number] Social History Tobacco Use Types Packs/Day Years Used Date Smoking Tobacco: Never Smokeless Tobacco: Never Alcohol Use Standard Drinks/Week Comments Not Currently 0 (1 standard drink = 0.6 oz pur e alcohol) Sex and Gender Information Value Date Recorded Sex Assigned at Not on file Legal Sex Male 10:46 AM EST Gender Identity Not on file Sexual Orientation Not on file documented as of this encounter Plan of Treatment Not on file documented as of this encounter Visit Diagnoses Not on filedocumented in this encounter Care Teams Concrete Floor Installer Relationship Specialty Start Date End Date Dandre Green PA [address] [place] [id number] PCP - General Physician Appeals Reviewer Veteran 11/26/22 documented as of this encounter Additional Source Comments The information contained in this document represents components of the legal health record. It is not the complete legal health record.[facility]
--- OUTSIDE RECORDS SUMMARY | 2025-09-03 18:48 | XMS_ITS ---
Author Organization [facility] Address [address] [place] [address] Phone Care Team Providers Care Insole Channeler Name Role Phone Dandre Green Primary Care Provider [phone] Active Problems Problem Noted Date Diagnosed Date Gastroesophageal reflux disease 07/26/2025 History of pericarditis 04/21/2025 Overview (04/21/2025): -Hospitalized from October 23 to October 24, 2013 at [facility] after having initially presented to [facility] with acute onset central chest pain responsive to sublingual and topical nitro with ST elevations in the precordial leads leading to transferred to [facility]; started initially on heparin for ACS ruled out with serial cardiac enzymes and was ultimately diagnosed with acute pericarditis even slight VT depression seen on EKG as well -Echocardiogram at the time showed preserved ejection fraction without wall motion abnormalities, mild diastolic dysfunction, mild right ventricular enlargement with mildly reduced RV systolic function, and mildly dilated aortic root at 4 cm Coronary artery calcification 04/21/2025 Chest pain 02/14/2025 Acute pulmonary embolus (CMS/HCC V24, CMS/HCC V2 8) 10/15/2024 Myasthenia gravis (CMS/HCC V24, CMS/HCC V28) Dupuytren contracture 10/13/2021 COVID-19 12/01/2020 Right inguinal hernia 04/12/2018 Thoracic aortic aneurysm without rupture ([facility]/ C V24) 03/04/2017 Overview (04/21/2025): -Most recent echocardiogram on 01/05/2017 which showed ascending aorta with max dimension of 4 cm and aortic root at 4.1 cm-unchanged from December 2015; this echo also showed preserved ejection fraction of 55% without regional wall motion abnormalities, mild diastolic dysfunction, normal RV size and systolic function, and no significant valve disease -CT of the chest in 01/2025 showed small fusiform ascending thoracic aortic aneurysm is noted, measuring up to 4.1 cm in diameter. The aortic root measures 4.9 cm in diameter. There is an aberrant right subclavian artery, an anatomic variant -Another CTPE was done 02/14/2025, but no aortic measurements were made -He was also followed by cardiac surgery and last saw Dr. Adams at [facility] in 2021. At that time, it was recommended to have a CT scan every 2 years to keep an eye on things. Essential hypertension 03/04/2017 Arthritis of knee, degenerative 04/17/2015 Impaired fasting glucose 07/05/2011 Obesity, unspecified 01/01/2011 Impotence of organic origin 07/02/2010 Basal cell carcinoma 12/17/2008 Overview (10/11/2024): Left wrist 2008 dr reza Pure hypercholesterolemia 06/15/2006 Current Treatment and Therapy Plans No current plan information found. Past Treatment and Therapy Plans No past plan information found. Lifetime Dose Tracking * Chemical Lifetime Dose Automatic Entry Manual Entr y Radiation 17,193.87 mGy 0 mGy 17,193.87 mGy Fluoro Time 7.55 minutes 0.55 minutes 7 minutes Air Kerma 4.776 mGy 4.776 mGy 0 mGy Dose Area Product 0.58 mGy-cm2 0.58 mGy-cm2 0 mGy-cm2
--- OUTSIDE RECORDS SUMMARY | 2025-09-03 18:48 | XMS_ITS | Clinical Summary ---
Author Organization [facility] Address [address] [address] Phone Care Team Providers Care Hypertrichologist Name Role Phone Dandre Green [facility] Provid er Allergies No known active allergies Medications multivitamin per tablet Take by mouth. Active metoprolol tartrate (LOPRESSOR) 50 MG tablet 12/11/2022 Active rosuvastatin (CRESTOR) 40 MG tablet Take 1 tablet by mouth daily. 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 Not on pretty e 03/05/2023 Are you concerned about learning? Not on file 03/05/2023 No 03/05/2023 No 03/05/2023 Digital Access Answer Date Recorded No 03/29/2023 No 03/29/2023 No 03/29/2023 Reliable internet access at home? Not on file 03/29/2023 Device with a working camera? Not on file Sex and Gender Information Value Date Recorded Sex Assigned at Not on file Legal Sex Male 10:46 AM EST Gender Identity Not on file Sexual Orientation Not on file Last Filed Vital Signs Vital Sign Reading Time Taken Comments Blood Pressure 161/85 01/14/2023 1:00 PM EST Pulse 63 01/14/2023 1:00 PM EST Temperature - - Respiratory Rate - - Oxygen Saturation 94% 01/14/2023 1:00 PM EST Inhaled Oxygen Concentration - - Weight 125.4 kg (276 lb 6.4 oz) 12/14/2022 8:28 AM EST Height 181.6 cm (5' 11.5 ) 12/14/2022 8:28 AM ES T Body Mass Index 38.01 12/14/2022 8:28 AM EST Plan of Treatment Health Maintenance Due Date Last Done Comments DEPRESSION SCREENING 1967 HEPATITIS C SCREENING 1973 COLOGUARD 2000 COLONOSCOPY 2000 COLORECTAL CANCER SCREENING 2000 FIT TEST 2000 FOBT 2000 SIGMOIDOSCOPY 2000 VIRTUAL COLONOSCOPY 2000 PNEUMOCOCCAL VACCINES (50+ years) (2 of 2 - PPSV23) 10/29/2021 10/29/2020 INFLUENZA VACCINE (#1) 2025 2, 09/07/2021, 08/12/2020, Additional history exists COVID-19 VACCINE ( season) 2025 10/14/2021, 02/13/2021, 01/23/2021 LIPID PANEL 12/02/2027 12/02/2022 RSV VACCINE (1 - 1-dose 75+ series) 2030 Adult Td,Tdap Booster 12/30/2032 12/30/2022 , 09/18/2012, 11/06/2001 ZOSTER VACCINES Completed 11/24/2022, 01/2022, 11/19/2015 SMOKING STATUS SCREENING (Once After 26 Yrs) Completed 01/14/2023 HEPATITIS A VACCINES Aged Out No long er eligible based on patient's age to complete this topic HIB VACCINES Aged Out No longer eligi ble based on patient's age to complete this topic MENINGOCOCCAL VACCINES (ACWY) Aged Out No longer eligible based on patient's age to complete this topic MENINGOCOCCAL VACCINES (B) Aged Out N o longer eligible based on patient's age to complete this topic Medical Devices Not on file Insurance [employer] Care Teams Hypertrichologist Relationship Specialty Start Date End Date Dandre Green PA [address] [place] [id number] PCP - General Physician Sql Ssis Developer 11/26/22 Additional Source Comments The information contained in this document represents components of the legal health record. It is not the complete legal health record.[facility] K[facility]ikeyan
--- OUTSIDE RECORDS SUMMARY | 2025-09-03 18:48 | XMS_ITS ---
Author Name [facility] Care Team Organization Name Specialty Phone Email Start Date End [facility] 06/26/2025 [facility] Organization [facility] 03/14/2023
--- OUTSIDE RECORDS SUMMARY | 2025-09-03 18:48 | XMS_ITS | Clinical Summary ---
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 bleeding, bruising, transient synovitis, no improvement in symptoms. Patient questions answered: yes Patient agrees, verbalizes understanding, and wants to proceed: yes Consent given by: Patient Informed consent discussion completed by Physician/BENJIE with patient: Verbal Pre-procedure timeout performed: yes Jillian Rose NP IN CLINIC/BEDSIDE ORDER ZIGGY Edited Result - Final * (ABNORMAL) TRANSTHORACIC ECHOCARDIOGRAM (TTE) COMPLETE (06/12/2025 11:00 AM EDT) Left Atrium Minor Ellis 6.2 cm CV PACS Left Atrium Major Ellis 5.6 cm CV PACS LA Area Sys (A2C) 28 cm2 CV PACS LA Area Sys (A4C) 22 cm2 CV PACS LA Volume (BP) 79 mL CV PACS RA Area 21.6 cm2 CV PACS RA 2D Volume 61 mL CV PACS AV Mean Gradient 2 mmHg CV PACS Ao VTI 31.4 cm CV PACS AV Peak Elmer 1.2 m/s CV PACS AV Peak Gradient 6 mmHg CV PACS AV Area Continuity Equation 3.3 cm2 CV PACS AV Area Peak Velocity 3.4 cm2 CV PACS Aortic Sinus Valsalva 4.3 cm CV PACS Ascending Aorta 4.0 cm CV PACS IVSD 1.1(A) 0.6 - 1.0 cm CV PACS LVIDD 4.9 4.2 - 5.8 cm CV PACS LVIDS 3.3 2.5 - 4.0 cm CV PACS LVOT Diameter 2.2 cm CV PACS LVOT Mean Elmer 0.7 m/s CV PACS LVOT Mean Grad 2 mmHg CV PACS LVOT Peak VTI 27.2 cm CV PACS LVOT Peak Elmer 1.1 m/s CV PACS LVOT Peak Gradient 5 mmHg CV PACS LVPWD 1.0 0.6 - 1.0 cm CV PACS MV E' Tissue Velocity Lateral 9 cm/s CV PACS MV E' Tissue Velocity Septal 6 cm/s CV PACS LVOT Area 3.8 cm2 CV PACS LVOT Stroke Volume 103 mL CV PACS E Wave Deceleration Time 317(A) 119 - 242 ms CV PACS MV Peak A Elmer 0.60 m/s CV PACS MV Peak E Elmer 0.40 m/s CV PACS MV Mean Gradient 0 mmHg CV PACS MV VTI 28.1 cm CV PACS Mitral Valve Max Velocity 0.8 m/s CV PACS MV Peak Gradient 3 mmHg CV PACS MV Area Continuity Equation 3.7 cm2 CV PACS PV Acceleration Time 123 ms CV PACS PV Acceleration Time 151 ms CV PACS PV Acceleration Time 137 ms CV PACS RV S' 10 cm/s CV PACS TAPSE 23 mm CV PACS TR Peak Velocity 2.30 m/s CV PACS TR Peak Gradient 22 mmHg CV PACS E/E' Ratio Septal 7 CV PACS E/E' Ratio Averaged 6 CV PACS Relative Wall Thickness ratio 0.41 0.24 - 0.42 CV PACS LVOT:AV VTI Index 0.87 CV PACS FS 33 % CV PACS LV Mass 2D 182 96 - 200 g CV PACS MV VTI:LVOT VTI ratio 1.0 CV PACS LVOT flow 266 mL/s CV PACS AV Velocity Ratio 0.89 CV PACS E/A Ratio 0.7 0.8 - 2.0 CV PACS E/E' Ratio Lateral 4 CV PACS BSA 2.49 m2 CV PACS LA Volume Index (BP) 31 mL/m2 CV PACS LVIDD Index 2.02 cm/m2 CV PACS LVIDS Index 1.36 cm/m2 CV PACS LV Mass Index 2D 77 50 - 102 g/m2 CV PACS LVOT Stroke Index 0 mL/m2 CV PACS RA 2D Volume Index 25 18 - 32 mL/m2 CV PACS DAVID Index (VTI) 1.35 cm2/m2 CV PACS DAVID Index (Pk Elmer) 1.40 cm2/m2 CV PACS Ascending Aorta Index 1.65 cm/m2 CV PACS RV Free Wall Peak S' 10 cm/s CV PACS RA Major Ellis 5.9 cm CV PACS RA Major Ellis Index 2.4 2.1 - 2.7 cm/m2 CV PACS MV PHT 92 ms CV PACS AV Area 2D 3.4 cm2 CV PACS DAVID Index (2D) 1.40 cm2/m2 CV PACS AV Area Index 1.3 CV PACS Right Ventricular Peak Systolic Pressure 24 mmHg CV PACS Est. RA Pressure 3 mmHg CV PACS Anatomical Region Laterality Modality Ultrasound Narrative 06/17/2025 4:30 PM EDT Left ventricle cavity size is normal. There is mild, concentric left ventricular hypertrophy. There is normal left ventricular regional wall motion. Left ventricular systolic function is in the normal range with an ejection fraction of 55-60%. Right ventricle cavity is normal. Right ventricular systolic function is normal. There is no hemodynamically significant valve disease. There is normal left ventricular diastolic function. There is normal pulmonary artery systolic pressure. The Sinus of Valsalva is dilated (4.3 cm). The ascending aorta is mildly dilated (4.0 cm) for age and body surface area. Left Ventricle Left ventricle cavity size is normal. There is mild concentric hypertrophy. Systolic function is normal with an ejection fraction of 55-60%. There are no regional LV wall motion abnormalities. There is no diastolic dysfunction and normal left atrial pressure. Right Ventricle Right ventricle cavity appears normal. Systolic function is normal. RV Strain at -22.2%. RV Free Wall Strain at -27.1%. Left Atrium Left atrium cavity size is normal. Right Atrium Right atrium cavity is normal. IVC/SVC Inferior vena cava structure is normal. RA pressures is estimated to be 3 mmHg (IVC diameter <21 mm and decreases >50% during inspiration). Mitral Valve The leaflets are mildly thickened. There is mild annular calcification. There is trace regurgitation. There is no evidence of mitral valve stenosis. Tricuspid Valve Tricuspid valve structure is normal. There is trace regurgitation. There is no evidence of tricuspid valve stenosis. The right ventricular systolic pressure is normal. The RVSP is estimated at 24 mmHg. Aortic Valve The aortic valve is trileaflet. There is trace regurgitation. There is no evidence of aortic valve stenosis. Pulmonic Valve Visualized portions of the pulmonic valve appear normal. There is trace pulmonic valve regurgitation. There is no evidence of pulmonic valve stenosis. Ascending Aorta The Sinus of Valsalva is (4.3 cm). The ascending aorta is (4.0 cm). Pericardium Pericardium appears normal. There is no pericardial effusion. Study Details Overall the study quality was adequate. Lydia Bassett MD CV ECHO PROCEDURES Final Result * COLONOSCOPY Anesthesia - General; [facility] ENDOSCOPY (04/10/2025 4:54 PM EDT) Anatomical Region Laterality Modality Endoscopy 04/10/2025 3:43 PM EDT Impressions 04/10/2025 5:01 PM EDT - One 10 mm polyp in the cecum, removed with a hot snare. Resected and retrieved. Clip was placed. 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 - Three 4 to 9 mm polyps in the sigmoid colon, in the descending colon and in the ascending colon, removed with a hot snare. Resected and retrieved. - Diverticulosis in the sigmoid colon. - Internal hemorrhoids. Recommendation: - Await pathology results. - Repeat colonoscopy in 3 years for surveillance. Narrative 04/10/2025 5:01 PM EDT [facility] GI Patient Name: Dago Ferraro Procedure Date: 04/10/2025 3:43 PM Date of : 1955 Age: 69 Gender: Male Note Status: Finalized Attending MD: Yaya Cooper MD, Procedure Date No Time: 04/10/2025 Procedure: Colonoscopy Indications: Screening for colorectal malignant neoplasm Providers: Yaya Cooper MD Referring MD: Yaya Cooper MD Medicines: Monitored Anesthesia Care Complications: No immediate complications. Estimated blood loss: Minimal. Estimated Blood Loss: Estimated blood loss was minimal. Procedure: Pre-Anesthesia Assessment: - Prior to the procedure, a History and Physical was performed, and patient medications and allergies were reviewed. The patient is competent. The risks and benefits of the procedure and the sedation options and risks were discussed with the patient. All questions were answered and informed consent was obtained. Patient identification and proposed procedure were verified by the physician, the nurse, the scientific linguist and the home theatre technician in the pre-procedure area in the endoscopy suite. Mental Status Examination: alert and oriented. Airway Examination: normal oropharyngeal airway and neck mobility. Respiratory Examination: clear to auscultation. CV Examination: normal. Prophylactic Antibiotics: The patient does not require prophylactic antibiotics. Prior Anticoagulants: The patient has taken Eliquis (apixaban). ASA Grade Assessment: III - A patient with severe systemic disease. After reviewing the risks and benefits, the patient was deemed in satisfactory condition to undergo the procedure. The anesthesia plan was to use monitored anesthesia care (MAC). Immediately prior to administration of medications, the patient was re-assessed for adequacy to receive sedatives. The heart rate, respiratory rate, oxygen saturations, blood pressure, adequacy of pulmonary ventilation, and response to care were monitored throughout the procedure. The physical status of the patient was re-assessed after the procedure. After I obtained informed consent, the scope was passed under direct vision. Throughout the procedure, the patient's blood pressure, pulse, and oxygen saturations were monitored continuously.The Colonoscope was introduced through the anus and advanced to the cecum, identified by appendiceal orifice and ileocecal valve. The colonoscopy was performed without difficulty. The patient tolerated the procedure well. The quality of the bowel preparation was good. Findings: The perianal and digital rectal examinations were normal. A 10 mm polyp was found in the cecum. The polyp was sessile. The polyp was removed with a hot snare. Resection and retrieval were complete. To prevent bleeding after the polypectomy, one hemostatic clip was successfully placed. 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 There was no bleeding at the end of the procedure. Estimated blood loss was minimal. Three sessile polyps were found in the sigmoid colon, descending colon and ascending colon. The polyps were 4 to 9 mm in size. These polyps were removed with a hot snare. Resection and retrieval were complete. Estimated blood loss was minimal. Scattered small-mouthed diverticula were found in the sigmoid colon. Internal hemorrhoids were found during retroflexion. The hemorrhoids were Grade II (internal hemorrhoids that prolapse but reduce spontaneously). Procedure Code(s): --- Professional --- 18856, Colonoscopy, flexible; with removal of tumor(s), polyp(s), or other lesion(s) by snare technique Diagnosis Code(s): --- Professional --- D12.0, Benign neoplasm of cecum D12.4, Benign neoplasm of descending colon D12.2, Benign neoplasm of ascending colon D12.5, Benign neoplasm of sigmoid colon CPT copyright 2020 [employer]. All rights reserved. The codes documented in this report are preliminary and upon porter marina review may be revised to meet current compliance requirements. Yaya Cooper MD 04/10/2025 5:01:33 PM This report has been signed electronically.Yaya Cooper MD Number of Addenda: 0 Note Initiated On: 04/10/2025 3:43 PM Scope Withdrawal Time: 0 hours 15 minutes 15 seconds Scope In: 3:50:16 PM Scope Out: 4:09:13 PM Endoscopy Department at [facility] - [address] [place] [id number] Procedure Note Yaya Cooper MD - 04/10/2025 [facility] GI Patient Name: Dago Ferraro Procedure Date: 04/10/2025 3:43 PM Date of : 1955 Age: 69 Gender: Male Note Status: Finalized Attending MD: Yaya Cooper MD, Procedure Date No Time: 04/10/2025 Procedure: Colonoscopy Indications: Screening for colorectal malignant neoplasm Providers: Yaya Cooper MD Referring MD: Yaya Cooper MD Medicines: Monitored Anesthesia Care Complications: No immediate complications. Estimated blood loss: Minimal. Estimated Blood Loss: Estimated blood loss was minimal. Procedure: Pre-Anesthesia Assessment: - Prior to the procedure, a History and Physicalwas performed, and patient medications and allergieswere reviewed. The patient is competent. The risks and benefits of the procedure and the sedation optionsand risks were discussed with the patient. Allquestions were answered and informed consent was obtained. Patient identification and proposed procedure were verified by the physician, the nurse, theanesthetist and the home theatre technician in the pre-procedure area in the endoscopy suite. Mental Status Examination: alertand oriented. Airway Examination: normal oropharyngeal airway and neck mobility. Respiratory Examination: clear to auscultation. CV Examination: normal. Prophylactic Antibiotics: The patient does notrequire prophylactic antibiotics. Prior Anticoagulants: The patient has taken Eliquis (apixaban). ASA Grade Assessment: III - A patient with severe systemic disease. After reviewing the risks and benefits,the patient was deemed in satisfactory condition to undergo the procedure. The anesthesia plan was touse monitored anesthesia care (MAC). Immediately priorto administration of medications, the patient was re-assessed for adequacy to receive sedatives. The heart rate, respiratory rate, oxygen saturations, blood pressure, adequacy of pulmonary ventilation,and response to care were monitored throughout the procedure. The physical status of the patient was re-assessed after the procedure. After I obtained informed consent, the scope was passed under direct vision. Throughout theprocedure, the patient's blood pressure, pulse, and oxygen saturations were monitored continuously.The Colonoscope was introduced through the anus and advanced to the cecum, identified by appendiceal orifice and ileocecal valve. The colonoscopy was performed without difficulty. The patient tolerated the procedure well. The quality of the bowel preparation was good. Findings: The perianal and digital rectal examinations were normal. A 10 mm polyp was found in the cecum. The polyp was sessile. The polyp was removed with a hot snare. Resection and retrieval were complete. To prevent bleeding after the polypectomy, one hemostatic clip was successfully placed. 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 There was no bleeding at the end of the procedure. Estimated blood loss was minimal. Three sessile polyps were found in the sigmoidcolon, descending colon and ascending colon. The polypswere 4 to 9 mm in size. These polyps were removed with a hot snare. Resection and retrieval were complete. Estimated blood loss was minimal. Scattered small-mouthed diverticula were found inthe sigmoid colon. Internal hemorrhoids were found duringretroflexion. The hemorrhoids were Grade II (internal hemorrhoids that prolapse but reduce spontaneously). Procedure Code(s): --- Professional --- 12698, Colonoscopy, flexible; with removal of tumor(s), polyp(s), or other lesion(s) by snare technique Diagnosis Code(s): --- Professional --- D12.0, Benign neoplasm of cecum D12.4, Benign neoplasm of descending colon D12.2, Benign neoplasm of ascending colon D12.5, Benign neoplasm of sigmoid colon CPT copyright 2020 [employer]. All rights reserved. The codes documented in this report are preliminary and upon porter marina reviewmay be revised to meet current compliance requirements. Yaya Cooper MD 04/10/2025 5:01:33 PM This report has been signed electronically.Yaya Cooper MD Number of Addenda: 0 Note Initiated On: 04/10/2025 3:43 PM Scope Withdrawal Time: 0 hours 15 minutes 15 seconds Scope In: 3:50:16 PM Scope Out: 4:09:13 PM Endoscopy Department at [facility] - [address] [place] [id number] IMPRESSION: - One 10 mm polyp in the cecum, removed with a hot snare. Resected and retrieved. 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 - Three 4 to 9 mm polyps in the sigmoid colon, inthe descending colon and in the ascending colon,removed with a hot snare. Resected and retrieved. - Diverticulosis in the sigmoid colon. - Internal hemorrhoids. Recommendation: - Await pathology results. - Repeat colonoscopy in 3 years for surveillance. us Yaya Cooper MD GI~PROCEDURE ORDERABLES Fin al Result * (ABNORMAL) Basic metabolic panel (02/15/2025 6:32 AM EDT) Sodium 140 133 - 145 mmol/L LAB CHEMISTRY METHOD 02/15/2025 8:16 AM [facility] Potassium 5.1 3.5 - 5.5 mmol/L LAB CHEMISTRY METHOD 02/15/2025 8:16 AM [facility] Chloride 106 96 - 110 mmol/L LAB CHEMISTRY METHOD 02/15/2025 8:16 AM [facility] CO2 30 21 - 32 mmol/L LAB CHEMISTRY METHOD 02/15/2025 8:16 AM [facility] Anion Gap 4 3 - 11 LAB CHEMISTRY METHOD 02/15/2025 8:16 AM [facility] Glucose 101(H) 70 - 100 mg/dL LAB CHEMISTRY METHOD 02/15/2025 8:16 AM [facility] BUN 16 5 - 25 mg/dL LAB CHEMISTRY METHOD 02/15/2025 8:16 AM [facility] Creatinine 0.89 0.70 - 1.30 mg/dL LAB CHEMISTRY METHOD 02/15/2025 8:16 AM [facility] eGFR 93 >=60 mL/min/1. 73m2 LAB CHEMISTRY METHOD 02/15/2025 8:16 AM [facility] Comment:Calculation based on the Chronic Kidney Disease Epidemiology Collaboration (CKD-EPI) equation refit without adjustment for race. BUN/Creatinine Ratio 18.0 LAB CHEMISTRY METHOD 02/15/2025 8:16 AM [facility] Calcium 9.3 8.5 - 10.5 mg/dL LAB CHEMISTRY METHOD 02/15/2025 8:16 AM [facility] Blood Venous blood specimen / Unknown Venipuncture / Unknown 02/15/2025 6:32 AM EDT 02/15/2025 7:40 AM EDT Sal Truong MD LAB BLOOD ORDERABLES Final Re sult [facility] [address] [place] [address], [place] [phone] * Lipid panel (06/25/2024) LDL/HDL Ratio 3 0 - 4 Triglycerides 127 0 - 150 mg/dL Cholesterol 133 0 - 200 mg/dL HDL 42 >=40 mg/dL LDL Cholesterol 66 0 - 100 mg/dL Blood Venous blood specimen / Unknown us Historical Provider MD LAB BLOOD ORDERABLES Jen l Result * Depression Screening (11/11/2023) Depression Screening Abstracted us Historical Provider MD HEALTH MAINTENANCE Final Result * US ABDOMINAL AORTA REAL TIME SCREEN STUDY AAA (10/09/2018 8:20 AM EST) Anatomical Region Laterality Modality Ultrasound 05/05/2018 8:04 AM EDT Narrative 10/09/2018 9:14 AM EST ULTRASOUND ABDOMINAL AORTA CLINICAL HISTORY: Thoracic aneurysm; rule out AAA. COMPARISON: Chest CT scans dated 01/25/2018 and 07/27/2018. FINDINGS: Per real estate appraiser, exam is limited by patient body habitus and bowel gas. The abdominal aorta is unremarkable appearance and normal in caliber. It measures 2.5 cm in maximum external-external diameter. The common iliac arteries are normal in caliber. IMPRESSION: IMPRESSION: Limited evaluation due to body habitus and bowel gas. No sonographic evidence of abdominal aortic aneurysm. Procedure Note Debra Peng, DO - 10/26/2022 ULTRASOUND ABDOMINAL AORTA CLINICAL HISTORY: Thoracic aneurysm; rule out AAA. COMPARISON: Chest CT scans dated 01/25/2018 and 07/27/2018. FINDINGS: Per real estate appraiser, exam is limited by patient body habitus andbowel gas. The abdominal aorta is unremarkable appearance and normal in caliber. It measures 2.5cm in maximum external-external diameter. The common iliac arteries are normal incaliber. IMPRESSION: IMPRESSION: Limited evaluation due to body habitus and bowel gas. Nosonographic evidence of abdominal aortic aneurysm. Neida HOPPER IMG US PROCEDURES Final Result * Hepatitis C Screening (04/05/2015) Hepatitis C Screening Abstracted Historical Provider MD HEALTH MAINTENANCE Final Result from Last 3 Months or Most Recently Relevant to Health Maintenance Insurance [employer] Advance Directives * Full Code - Confirmed (Latest Code Status on File) Date Activated Date Inactivated Comments 02/14/2025 7:58 PM 02/15/2025 1:[address] atus was ascertained in the following way: Code status discussion: discussion with patient To update the patient's code status, place a code status order. Do not modify or discontinue any currently active code status orders. * Full Code - Default Date Activated Date Inactivated Comments 02/14/2025 2:25 PM 02/14/2025 7:58 PM This is orde r is used when code status has not been discussed with the patient, or code status is otherwise unknown/unconfirmed To update the patient's code status, place a code status order. Do not modify or discontinue any currently active code status orders. * Full Code - Default Date Activated Date Inactivated Comments 10/15/2024 9:43 PM 10/17/2024 2:59 PM This is ord er is used when code status has not been discussed with the patient, or code status is otherwise unknown/unconfirmed To update the patient's code status, place a code status order. Do not modify or discontinue any currently active code status orders. Care Teams Regional Extension Service Specialist Relationship Specialty Start Date End Date Dandre Green PA [address] [place] [id number] PCP - General Internal Medicine 10/15/24
--- OUTSIDE RECORDS SUMMARY | 2025-09-03 18:48 | XMS_ITS | Data Portability ---
Author Organization [email or web address] [facility], [place] [employer] [facility] Address [address] [place] [address] Care Team Providers Care Nc Manager Name Role Phone [facility] CARE TEAM OTHER [facility] [place] Care Provider Assessment Encounter Date Assessment Date Assessment LastModified by Organization Details LastModified Time 03/01/2025 03/01/2025 I provided real -time medical direction via phone for this encounter and was available for additional phone-based assistance as needed. I have reviewed and agree with the Assessment and Plan as documented by the Equipment Planner. Patient given the opportunity to ask questions. Our service contacted for an assessment of: possible sinus infection As per above, patient with increasing headache as well as sinus pressure and sinus congestio n over the past several days. Possible low-grade temp yesterday. Denies chest pain, shortness of breath, fever or chills, denies cough or chest pain. Per registered nurse cardiac telemetry on the scene, Vital signs stable patient is afebrile. Nontoxic on exam Impression: possible sinusitis Plan: Flonase given for nasal congestion. Z-Rafy also sent to patient's pharmacy. Allergies: Reviewed PCP f/u: We discussed the diagnostic uncertainty of home visits and the risk associated with this. In this case, the patient and I felt this to be an acceptable and reasonable amount of risk given the benefit of avoiding an ED visit. We discussed the need to seek care urgently/emergentl y in the setting of any new or worsening serious symptoms, particularly fever chills lightheadedness altered mental status [email or web address] Not available 03/01/2025 19:13:22 Plan of Treatment Reminders Order Date Submit Date Provider Last Modified By Organization Details Last Modified Time Details Appointments None recorded. Lab None recorded. Referral None recorded. Procedures None recorded. Surgeries None recorded. Imaging None recorded. Medication Orders Flonase Allergy Relief 50 mcg/actuati on nasal spray,suspe nsion 2024 025 [id number], [address] [place], [address], 17:04:32 azithromyci n 250 mg tablet 2024 025 [id number], [address] [place], [address], 17:04:32 Patient TargetsNo targets recorded. Patient InstructionsNo instructions recorded. Reason for Referral None Reported. Medical Equipment None Reported. Allergies No known drug allergies Medications Name Sig Start Date Stop Date Status Note LastModified by Organization Details LastModified Time amoxicillin 500 mg capsule TAKE 4 CAPSULES 1 HOUR BEFORE DENTAL APPOINTMENT active Not Available Not Available Not Available azithromycin 250 mg tablet TAKE 2 TABLETS BY MOUTH TODAY, THEN TAKE 1 TABLET DAILY FOR 4 DAYS DIRECTED active Not Available Not Available No t Available ibuprofen 800 mg tablet PLEASE SEE ATTACHED FOR DETAILED DIRECTIONS active Not Available Not Available N ot Available prednisone 1 mg tablet TAKE 3 TABLETS BY MOUTH DAILY ORALLY 90 DAYS active Not Available Not Available No t Available metoprolol tartrate 50 mg tablet TAKE 1/2 TABLET TWICE A DAY BY MOUTH active Not Available Not Available No t Available lorazepam 1 mg tablet TAKE 2 TABLETS BY MOUTH 1+1/4 HOUR BEFORE APPOINTMENT active Not Available Not Available Not Available fluticasone propionate 50 mcg/actuatio n nasal spray,suspen raffy SPRAY 1 SPRAY BY INTRANASAL ROUTE EVERY DAY FOR 10 DAYS active Not Available Not Available No t Available amoxicillin 875 mg-potassium clavulanate 125 mg tablet TAKE 1 TABLET BY MOUTH TWICE A DAY FOR 7 DAYS active Not Available Not Available No t Available rosuvastatin 40 mg tablet TAKE 1 TABLET BY MOUTH EVERY DAY active Not Available Not Available No t Available Eliquis 5 mg tablet TAKE 1 TABLET BY MOUTH TWICE A DAY active Not Available Not Available No t Available Eliquis DVT-PE Treatment 30-Day Starter 5 mg (74 tablets) in dose pack PLEASE SEE ATTACHED FOR DETAILED DIRECTIONS active Not Available Not Available N ot Available Vitals Date Recorded Body temperature Respiratory rate Oxygen saturation Oxygen saturation in Arterial blood by Pulse oximetry Body weight Body height Heart rate Systolic And Diastolic Provider Name and Address Organization Details Last Updated DateTime 97.8 [degF] 18 /min 93 % 93 % 68104.3 76 g 187.96 cm 71 /min 165/77 mm[Hg] Not Available [facility] - production 17:01:02 Social History None recorded. Functional Status None recorded. Mental Status None recorded. Family History Nothing Reported. Medical History No medical history recorded. Past Encounters Encounter ID Performer Location Encounter Start Date Encounter Closed Date Diagnosis/Indication Diagnosis SNOMED-CT Code Diagnosis ICD10 Code Diagnosis IMO Codes Diagnosis Note [id number] Deya Hassan MD [facility] [address] [place] [address] 03/01/2025 17:00:59 03/02/2025 18:50:13 Congestion of nasal sinus 12545419 R09.81 [id number] Health Concerns Section Related Observation LastModified by Organization Detai ls LastModified Time None Recorded Concern Status LastModified by Organization Details LastModified Time None Recorded Advance Directives Directive None Recorded Payers Insurance Date Sequence Insurance Name Policy Number Policy Ybarra Covered Member ID Ybarra Member ID Guarantor Name 03/02/2025 1 [facility] - MEDICARE PREFERRED (MEDICARE REPLACEMENT HMO) [id number] [id number] Dago Ferraro Notes Date Note Type Note Provider Name and Address Organization Details Recorded Time 03/01/2025 text/html [facility] Nurse Triage Notes (Christin Núñez - RN): Reason For Request: Pt's spouse Britany reporting sinuses above his eyes are pounding>suspected sinus infection>*$15 copay, would like billed to [facility] Patient Reports: Cough, fever greater than 2 days ; Sputum increase ; Cough Denies: Increased work of breathing/labored with or without fever Unable to speak in full sentences without distress Discoloration of skin -cyanosis Needs to sleep sitting up, can t catch breath Shortness of breath in setting of confusion History of asthma, increased use of inhaler COPD Shortness of breath with exertion Pain with inspiration Chief Complaints: Common Cold PMH: Pulmonary Embolism, Hypertension, Hyperlipidemia, Other PMH Reviewed at 03/01/2025 - 12:08 Allergies Reviewed at 03/01/2025 - 12:08 Comments: 69 y.o male complains of Common Cold He has pressure above his eyes, nasal congestion , and headache that started yesterday . He does have a cough, with clear congestion. He denies fever/ chills/ Nausea / vomiting . He denies any SOB. He did take some OTC medication that he feels helped. HE is on eliquis for PE m he also has myasthenia gravis I provided information on the mobile health provider response time and advised the patient and/or caregiver to monitor reported signs and symptoms. I discussed the warning signs of when to seek emergency care. .................. .................. .................. .................. .................. .................. .................. ............... Equipment Planner Note From Jayda Escobedo: [facility] makes pt contact. He is found conscious and alert, reclined in a recliner in the living room of his home. His face is mildly red and his conjunctiva are red and swollen. No ashen or zepeda color is noted, no stridor or sonorous respirations are present, no facial droop, one-sided weakness, or slurred speech are observed, and he is not bleeding anywhere. He has a nasal quality to his voice when he speaks and he has a dry cough. Pt says he was outside a couple days ago and thatched his yard and applied lawn treatments w/o wearing a mask. He has significant seasonal allergies and has been congested w/ sinus pain and pressure since. He reports clear drainage, no yellow or green colored sputum. He has mild post nasal drip, but the head pain and pressure is his main complaint. Pt has had this before and it clears up well w/ abx. He has not tried Flonase or rinsing his sinuses, but he takes a daily Claritin. Pt also takes Eliquis due to PE in October. He is denying cp, sob, n/v/d, fever/chills, hard cough, or sore throat. Pt consents to evaluation and treatment today. [facility] obtains pt consent. Vital signs are gathered and pt is assessed. Lung sounds are equal, mild expiratory wheeze is noted in the mid region, clear on top and in the bases. Sclera are red and conjunctiva are swollen. Pt is tender to touch over his frontal sinuses, no pain in the sphenoid or maxillary regions. Remaining HEENT is unremarkable. [facility] contacts [facility] and discusses the above. [facility] prescribes a Z-Pack and fluticasone nasal spray. Pt is informed of s/s that require emergency treatment. Pt thanks [facility] for coming. [facility] is clear. Report completed by JANE Escobedo [id number]. .................. .................. .................. .................. .................. .................. .................. ............... [facility] Consulted: Deya Hassan .................. .................. .................. .................. .................. .................. .................. ............... Disposition: Mervat Hassan MD [address] [facility],[address], [place], [address], [facility] 03/01/2025 19:13:29
== END 2025-09-03 14:48 | disposition home or self-care (01) ==
LOC: HO.HSM 14:28
PROVIDERS: PCP Physician Assistant Medical; Visit Provider Psychiatry & Neurology Neurology
DX: G70.00 Myasthenia gravis without (acute) exacerbation (principal)
CPT/HCPCS: 99214

== ENCOUNTER → 2025-09-03 14:27 | Outpatient (BNVA) | payer MEDICARE, SELFPAY | PROVIDERS: PCP Physician Assistant Medical; Visit Provider Psychiatry & Neurology Neurology | DX: G70.00 Myasthenia gravis without (acute) exacerbation (principal) | CPT/HCPCS: 99212 ==